=== PATIENT | female | born 1985 | race Hispanic/Latino ===

== ENCOUNTER 2020-02-14 06:27 | Emergency (ER) | payer SELFPAY ==
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
[2020-02-15 16:45] VITALS: TEMP 98.8; O2SAT 100
[2020-02-15 16:46] VITALS: BP 129/90
== END 2020-02-14 07:37 | disposition home or self-care (01) ==
LOC: ER 06:27
DX: M54.5 Low back pain (principal); V49.49XA Driver injured in collision with other motor vehicles in traffic accident, initial encounter
CPT/HCPCS: 70450; 71250; 72125; 99284; G0390

== ENCOUNTER 2021-11-01 11:12 | Day surgery (SDC) | payer OTHER, SELFPAY ==
[2021-11-01] MEDS ORDERED: Ringers Lactate 1,000 ML IV ONE (11:30)
[2021-11-01 11:57] VITALS: O2SAT 100
[2021-11-01] MEDS ORDERED: dexAMETHasone 10 MG/ML VIAL ONE (13:53)
[2021-11-01] MEDS ORDERED: FENTANYL CITR 100 MCG/2 ML ONE (13:53)
[2021-11-01] MEDS ORDERED: LIDOCAINE 2% MPF 5 ML VIAL ONE (13:53)
[2021-11-01] MEDS ORDERED: KETOROLAC 30 MG/ML INJ ONE (13:53)
[2021-11-01] MEDS ORDERED: propofoL 200 MG/20 ML VIAL IV ONE ×2 (13:53→15:30)
[2021-11-01] MEDS ORDERED: MIDAZOLAM HCL 2 MG/2 ML INJ ONE (13:54)
[2021-11-01] MEDS ORDERED: ONDANSETRON 4 MG/2 ML VIAL ONE (13:54)
[2021-11-01] MEDS: LIDOCAINE 1% W/EPI 1:100,000 MDV 20 ML VIAL ONE ×2 (14:32→15:21)
[2021-11-01] MEDS ORDERED: IBUPROFEN 200 MG TAB PO PRN (16:00)
[2021-11-01] MEDS ORDERED: HYDROCODONE/APAP 5/325 MG TAB PO PRN (16:00)
[2021-11-01] MEDS ORDERED: PROMETHAZINE INJ 25 MG/ML AMP IV PRN (16:00)
--- NOTE | 2021-11-01 16:03 | P.BOP ---
Preoperative diagnosis: AUB-L/GISELE Postoperative diagnosis: same , endometrial polyp Primary procedure: Hysteroscopy polypectomy d/c with myosure lite Estimated blood loss: min Specimen: POLYP AND CURETTINGS Findings: polyp in the canal, removed completely Anesthesia: MAC Complications: None Transferred to: Recovery Room Condition: Good
[2021-11-01 16:58] VITALS: TEMP 96.9
[2021-11-01 17:00] VITALS: BP 126/82
--- NOTE | 2021-11-02 02:37 | OP ---
Date of Procedure: 11/01/2021 Surgeon: Gisel Garcia MD Customer Manager: None. Preoperative Diagnoses: AUB-L and chronic iron-deficiency anemia. Postoperative Diagnoses: AUB-L, chronic iron-deficiency anemia, and endometrial polyp. Procedures Performed: Hysteroscopy, polypectomy, dilatation and curettage, and MyoSure Lite. Anesthesia: MAC plus paracervical block. Estimated Blood Loss: Minimal. Specimen: Polyp and endometrial curettings. Fluids: Deficit during the hysteroscopy was 200 of normal saline. Complications: No complications. Disposition: The patient was transferred to the recovery room in stable condition. Findings: Polyp in the canal removed completely. Indications: The patient is a 36-year-old female who presented with iron-deficiency anemia and jeff rhagia and on ultrasound was found to have fibroids and on hysteroscopy was found to have endometrial polyp. She was then consented to be brought into the hospital for hysteroscopy, polypectomy, and D and C or a myomectomy if it was a fibroid. Intracavitary mass was confirmed with direct visualization in the office so was prepared for MyoSure. Procedure In Detail: After informed consent was verified, she was taken back to OR and placed in sup ine fashion. After MAC was given, the patient was placed in a dorsal lithotomy position and pelvic e xam was performed. Prep was done with Betadine. Speculum was placed to expose the cervix. Anterior lip injected with 1% lidocaine mixed with 1:100,000 epinephrine at 12 o'clock, 4, and 8 o'clock posi tions. Once this was done, 20 cc was done. Then anterior lip grasped with 2 Allis clamps and the ce rvix was dilated to 18-Persian. The MyoSure scope and the lines were all primed, then inserted into t he cervical canal and then through the cervical canal, traversed into the uterine cavity without any problems. The mass was seen and once the scope was introduced, the polyp was seen and this is a soft er polyp, so we went ahead and used the MyoSure to take it down. Once this was done completely, both the tubal ostia were visualized. Rest of the cavity was unremarkable. The visualization was slight ly less optimal due to the turbidity of the fluid and difficult suctioning, but fairly sure that the polyp was removed. Endometrial curettings were performed with the endometrial curette #2 and sent over for permanent pat hology. All instruments were removed. Instrument and sponge counts were correct. She was recovered from anesthesia and taken to PACU in stable condition. EBL minimal. She will follow up with me in 1 week and then we will make a plan on treatment for her. THAO/TERRENCE Voice ID: [id number] Report ID: [id number]
[2021-11-02] MEDS ORDERED: HOME MED 1 EA UNK (Cetirizine Hcl [Zyrtec] 10 MG Tablet) PO SCH (09:00)
[2021-11-02] MEDS ORDERED: FERROUS SULFATE 325 MG TAB PO SCH (09:00)
== END 2021-11-01 16:45 | disposition home or self-care (01) ==
LOC: OR 11:12
PROVIDERS: ATTEND Obstetrics & Gynecology
PROC: 0UDB7ZX Extraction of Endometrium, Via Natural or Artificial Opening, Diagnostic (ICD-10-PCS; 2021-11-01)
PROC: 0UJD8ZZ Inspection of Uterus and Cervix, Via Natural or Artificial Opening Endoscopic (ICD-10-PCS; 2021-11-01)
PROC: 0UB97ZX Excision of Uterus, Via Natural or Artificial Opening, Diagnostic (ICD-10-PCS; principal; 2021-11-01 13:00)
DX: N92.0 Excessive and frequent menstruation with regular cycle (principal); D50.0 Iron deficiency anemia secondary to blood loss (chronic); D52.9 Folate deficiency anemia, unspecified; D25.0 Submucous leiomyoma of uterus; Z20.822 Contact with and (suspected) exposure to COVID-19
CPT/HCPCS: 81025; 88305; 58558; U0003; J2704 ×2; J2250; J3010; J1100; J7120; J2405